=== PATIENT | female | born 1995 | race Caucasian/White ===

== ENCOUNTER 2019-11-08 04:14 | Inpatient (IN) | payer MEDICAID ==
[~2019-11-08] VITALS: Ht 175.3 cm; Wt 69.9 kg
[2019-11-08] MEDS ORDERED: HALOPERIDOL 5 MG TABLET PO PRN (06:45)
[2019-11-08 07:16] VITALS: BP 116/76
[2019-11-08 08:26] VITALS: BP 115/73
[2019-11-08] MEDS ORDERED: GuaiFENesin/D-METHORPHAN [SUGAR-FREE] 200-20MG/10 ML SYRUP UDCUP PO PRN (09:00)
[2019-11-08] MEDS ORDERED: ALBUTEROL SULFATE HFA 90 MCG/PUFF 8 GM INHALER IH PRN (09:00)
[2019-11-08] MEDS ORDERED: DOCUSATE SODIUM 100 MG CAPSULE PO PRN (09:00)
[2019-11-08] MEDS ORDERED: PETROLATUM,WHITE 28 GM JELLY TP PRN (09:00)
[2019-11-08] MEDS ORDERED: LOPERAMIDE HCL 2 MG CAPSULE PO PRN (09:00)
[2019-11-08] MEDS ORDERED: NICOTINE 14 MG/24 HOUR PATCH TD PRN (09:00)
[2019-11-08] MEDS ORDERED: CloNIDine HCL 0.1 MG TABLET PO PRN (09:00)
[2019-11-08] MEDS ORDERED: ONDANSETRON HCL 4 MG TABLET PO PRN (09:00)
[2019-11-08] MEDS ORDERED: MAG HYDROX/AL HYDROX/SIMETH ES 30 ML SUSPENSION UDCUP PO PRN (09:00)
[2019-11-08] MEDS ORDERED: ACETAMINOPHEN 325 MG TABLET PO PRN (09:00)
[2019-11-08] MEDS ORDERED: IBUPROFEN 400 MG TABLET PO PRN (09:00)
[2019-11-08] MEDS: SERTRALINE HCL 100 MG TABLET PO SCH (13:25)
[2019-11-08 16:40] VITALS: BP 127/76
[2019-11-08] MEDS: OLANZapine 10 MG TABLET PO SCH (17:04)
[2019-11-08] MEDS: TraMADol HCL 50 MG TABLET PO PRN (17:13)
[2019-11-09 00:03] VITALS: BP 120/74
[2019-11-09] MEDS: TraMADol HCL 50 MG TABLET PO PRN ×2 (00:07→13:02)
[2019-11-09 08:17] VITALS: BP 100/69
[2019-11-09] MEDS ORDERED: SERTRALINE HCL 100 MG TABLET PO SCH (09:00)
[2019-11-09] MEDS: OLANZapine 10 MG TABLET PO SCH ×2 (09:28→17:00)
[2019-11-09] MEDS: SERTRALINE HCL 100 MG TABLET PO SCH (09:28)
[2019-11-09 13:02] VITALS: BP 113/70
[2019-11-09 16:04] VITALS: BP 123/72
[2019-11-09] MEDS: LORazepam 2 MG TABLET PO PRN (20:49)
[2019-11-10 03:10] VITALS: BP 126/86
[2019-11-10 08:09] VITALS: BP 108/83
[2019-11-10 08:11] LABS: BASOPHILS % (AUTO) 0.8 % (0.0-2.0); HEMATOCRIT 38.4 % (36-46); HEMOGLOBIN 12.9 g/dL (12.0-16.0); LYMPHOCYTES # (AUTO) 1.9 K/uL (1.0-4.8); LYMPHOCYTES % (AUTO) 29.3 % (22.0-44.0); MEAN CORPUSCULAR HEMOGLOBIN 30.4 pg (26.0-34.0); MEAN CORPUSCULAR HGB CONC 33.5 G/dL (31.0-37.0); MEAN CORPUSCULAR VOLUME 91 fL (80-100); MONOCYTES # (AUTO) 0.4 K/uL (0.1-1.0); MONOCYTES % (AUTO) 6.1 % (2.0-9.0); NEUTROPHILS # (AUTO) 3.8 K/uL (1.8-7.7); NEUTROPHILS % (AUTO) 58.8 % (40.0-70.0); PLATELET COUNT (AUTO) 264 K/uL (150-450); RED BLOOD CELL COUNT(AUTO) 4.24 MIL/uL (4.00-5.20); RED CELL DISTRIBUTION WIDTH 13.7 % (11.5-14.5)
[2019-11-10] MEDS: SERTRALINE HCL 100 MG TABLET PO SCH (08:32)
[2019-11-10] MEDS: OLANZapine 10 MG TABLET PO SCH ×2 (08:32→16:25)
[2019-11-10 08:44] LABS: ALANINE AMINOTRANSFERASE 21 U/L (12-78); ALBUMIN 3.6 g/dL (3.4-5.0); ALKALINE PHOSPHATASE 53 U/L (46-116); ANION GAP 1 mmol/L (8-16); ASPARTATE AMINOTRANSFERASE 18 U/L (15-37); BILIRUBIN,TOTAL 0.3 mg/dL (0.1-1.0); CALCIUM, TOTAL 8.9 mg/dL (8.8-10.5); CARBON DIOXIDE 36 mmol/L (22-29); CHLORIDE 104 mmol/L (98-107); CHOLESTEROL 179 mg/dL (131-200); CREATININE 0.76 mg/dL (0.60-1.30); FREE T4 (FREE THYROXINE) 0.83 ng/dL (0.76-1.46); GLOMERULAR FILTR. RATE CALC > 60 mL/min (>60); GLUCOSE,RANDOM 74 mg/dL (70-110); HCG,QUANTITATIVE < 1 mIU/mL (0-6); HDL CHOLESTEROL 59 mg/dL (40-60); LDL CHOL (CALC.) 112 mg/dL (0-130); POTASSIUM 4.8 mmol/L (3.5-5.1); SODIUM SERUM 141 mmol/L (136-145); THYROID STIMULATING HORMONE 0.66 uIU/mL (0.36-3.74); TOTAL PROTEIN, SERUM 6.8 g/dL (6.4-8.2); TRIGLYCERIDES 38 mg/dL (15-150); UREA NITROGEN, BLOOD 13 mg/dL (7-18)
[2019-11-10 12:47] VITALS: BP 114/78
[2019-11-10] MEDS: TraMADol HCL 50 MG TABLET PO PRN (12:47)
[2019-11-10 16:05] VITALS: BP 107/66
[2019-11-10] MEDS: LORazepam 2 MG TABLET PO PRN (19:00)
[2019-11-11 06:44] VITALS: BP 115/80
[2019-11-11] MEDS: SERTRALINE HCL 100 MG TABLET PO SCH (08:39)
[2019-11-11] MEDS: OLANZapine 10 MG TABLET PO SCH (08:39)
[2019-11-11 08:46] VITALS: BP 115/78
[2019-11-11] MEDS: TraMADol HCL 50 MG TABLET PO PRN ×2 (08:50→16:59)
[2019-11-11] MEDS: LORazepam 2 MG TABLET PO PRN ×2 (13:19→23:15)
[2019-11-11] MEDS: OLANZapine 7.5 MG TABLET PO SCH (16:24)
[2019-11-11 16:36] VITALS: BP 119/77
[2019-11-11] MEDS: MAGNESIUM HYDROXIDE SUSPENSION 30 ML UDCUP PO PRN (23:09)
[2019-11-12 00:14] VITALS: BP 124/84
[2019-11-12] MEDS: ZOLPIDEM TARTRATE 10 MG TABLET PO PRN (00:21)
[2019-11-12] MEDS: OLANZapine 7.5 MG TABLET PO SCH ×2 (08:09→16:44)
[2019-11-12] MEDS: SERTRALINE HCL 100 MG TABLET PO SCH (08:09)
[2019-11-12 08:25] VITALS: BP 126/73
[2019-11-12 16:08] VITALS: BP 118/70
[2019-11-12] MEDS: TraMADol HCL 50 MG TABLET PO PRN (21:24)
[2019-11-13 02:06] VITALS: BP 123/85
[2019-11-13] MEDS: LORazepam 2 MG TABLET PO PRN (02:10)
[2019-11-13] MEDS: OLANZapine 7.5 MG TABLET PO SCH ×2 (08:51→16:53)
[2019-11-13] MEDS: SERTRALINE HCL 100 MG TABLET PO SCH (08:51)
[2019-11-13 08:58] VITALS: BP 98/59
[2019-11-13 13:40] VITALS: BP 112/68
[2019-11-13] MEDS: TraMADol HCL 50 MG TABLET PO PRN ×2 (13:40→20:15)
[2019-11-13 16:13] VITALS: BP 115/65
[2019-11-13] MEDS: ZOLPIDEM TARTRATE 10 MG TABLET PO PRN (22:05)
[2019-11-14 00:20] VITALS: BP 122/67
[2019-11-14 08:10] VITALS: BP 116/72
[2019-11-14] MEDS: SERTRALINE HCL 100 MG TABLET PO SCH (08:12)
[2019-11-14] MEDS: OLANZapine 7.5 MG TABLET PO SCH ×2 (08:13→16:45)
[2019-11-14 16:07] VITALS: BP 112/85
[2019-11-14] MEDS: LORazepam 2 MG TABLET PO PRN (16:50)
[2019-11-15 01:07] VITALS: BP 136/82
[2019-11-15] MEDS: ZOLPIDEM TARTRATE 10 MG TABLET PO PRN ×2 (02:06→21:48)
[2019-11-15] MEDS: SERTRALINE HCL 100 MG TABLET PO SCH (08:52)
[2019-11-15] MEDS: OLANZapine 7.5 MG TABLET PO SCH ×2 (08:52→17:04)
[2019-11-15 16:13] VITALS: BP 121/79
[2019-11-16 01:00] VITALS: BP 120/84
[2019-11-16] MEDS: TraMADol HCL 50 MG TABLET PO PRN ×2 (03:06→18:09)
[2019-11-16 08:38] VITALS: BP 112/69
[2019-11-16] MEDS: SERTRALINE HCL 100 MG TABLET PO SCH (10:02)
[2019-11-16] MEDS: OLANZapine 7.5 MG TABLET PO SCH ×2 (10:02→17:29)
[2019-11-16] MEDS: LORazepam 2 MG TABLET PO PRN ×2 (10:02→17:29)
[2019-11-16 16:19] VITALS: BP 118/74
[2019-11-16] MEDS: ZOLPIDEM TARTRATE 10 MG TABLET PO PRN (22:10)
[2019-11-17 00:19] VITALS: BP 111/79
[2019-11-17 08:18] VITALS: BP 118/72
[2019-11-17] MEDS: SERTRALINE HCL 100 MG TABLET PO SCH (09:09)
[2019-11-17] MEDS: OLANZapine 7.5 MG TABLET PO SCH ×2 (09:09→16:40)
[2019-11-17 16:21] VITALS: BP 120/64
[2019-11-17] MEDS: MAGNESIUM HYDROXIDE SUSPENSION 30 ML UDCUP PO PRN (21:55)
[2019-11-18 00:56] VITALS: BP 114/74
[2019-11-18 08:18] VITALS: BP 119/74
[2019-11-18] MEDS: OLANZapine 7.5 MG TABLET PO SCH (08:49)
[2019-11-18] MEDS: SERTRALINE HCL 100 MG TABLET PO SCH (08:49)
[2019-11-18] MEDS ORDERED: SERT100T12 PO (21:03)
[2019-11-18] MEDS ORDERED: OLAN7.5T2 PO (21:04)
[2019-11-19] MEDS ORDERED: TRAM50TA4 PO (11:32)
[2019-11-19] MEDS ORDERED: ZOLP10TA8 PO (11:32)
[2019-11-19] MEDS ORDERED: IBUP-1506 PO (11:32)
[2019-11-19] MEDS ORDERED: MOM30 PO (11:32)
[2019-11-19] MEDS ORDERED: HALO5TAB23 PO (11:32)
[2019-11-19] MEDS ORDERED: LORA-1001 PO (11:32)
== END 2019-11-18 16:30 | disposition short-term general hospital (02) | DRG 885 ==
LOC: B2S 05:45 → B3A 11-14 14:00
PROVIDERS: ADMIT Psychiatry & Neurology Psychiatry; ATTEND Psychiatry & Neurology Psychiatry
DX: F20.0 Paranoid schizophrenia (principal); F10.10 Alcohol abuse, uncomplicated; E05.00 Thyrotoxicosis with diffuse goiter without thyrotoxic crisis or storm; F32.9 Major depressive disorder, single episode, unspecified; F19.10 Other psychoactive substance abuse, uncomplicated; F41.9 Anxiety disorder, unspecified; G44.209 Tension-type headache, unspecified, not intractable; Z20.828 Contact with and (suspected) exposure to other viral communicable diseases; Z59.0 Homelessness; Z79.899 Other long term (current) drug therapy
CPT/HCPCS: 84436; 84439; 84443

== ENCOUNTER 2019-11-21 17:33 | Inpatient (IN) | payer MEDICAID ==
[~2019-11-21] VITALS: Ht 175.3 cm; Wt 63.5 kg
[~2019-11-21 17:33] MED LIST: AMOX1TAB16 PO; FLUC100T PO; HALO5TAB23 PO; IBUP-1506 PO; LORA-1001 PO; MOM30 PO; OLAN7.5T2 PO; SERT100T12 PO; TRAM50TA4 PO; ZOLP10TA8 PO
[2019-11-22] MEDS ORDERED: ZOLPIDEM TARTRATE 10 MG TABLET PO PRN (01:45)
[2019-11-22] MEDS ORDERED: LORazepam 2 MG TABLET PO PRN (01:45)
[2019-11-22 03:38] VITALS: BP 131/91
[2019-11-22] MEDS ORDERED: PETROLATUM,WHITE 28 GM JELLY TP PRN (08:15)
[2019-11-22] MEDS ORDERED: IBUPROFEN 400 MG TABLET PO PRN (08:15)
[2019-11-22] MEDS ORDERED: ONDANSETRON HCL 4 MG TABLET PO PRN (08:15)
[2019-11-22] MEDS ORDERED: CloNIDine HCL 0.1 MG TABLET PO PRN (08:15)
[2019-11-22] MEDS ORDERED: NICOTINE 14 MG/24 HOUR PATCH TD PRN (08:15)
[2019-11-22] MEDS ORDERED: LOPERAMIDE HCL 2 MG CAPSULE PO PRN (08:15)
[2019-11-22] MEDS ORDERED: ALBUTEROL SULFATE HFA 90 MCG/PUFF 8 GM INHALER IH PRN (08:15)
[2019-11-22] MEDS ORDERED: MAGNESIUM HYDROXIDE SUSPENSION 30 ML UDCUP PO PRN (08:15)
[2019-11-22] MEDS ORDERED: DOCUSATE SODIUM 100 MG CAPSULE PO PRN (08:15)
[2019-11-22] MEDS ORDERED: ACETAMINOPHEN 325 MG TABLET PO PRN (08:15)
[2019-11-22] MEDS ORDERED: MAG HYDROX/AL HYDROX/SIMETH ES 30 ML SUSPENSION UDCUP PO PRN (08:15)
[2019-11-22] MEDS ORDERED: GuaiFENesin/D-METHORPHAN [SUGAR-FREE] 200-20MG/10 ML SYRUP UDCUP PO PRN (08:15)
[2019-11-22] MEDS ORDERED: SERTRALINE HCL 100 MG TABLET PO SCH (09:00)
[2019-11-22] MEDS ORDERED: OLANZapine 7.5 MG TABLET PO ONE (09:00)
[2019-11-22 10:26] VITALS: BP 109/77
[2019-11-22] MEDS ORDERED: FLUC100T PO (15:59)
[2019-11-22] MEDS ORDERED: AMOX1TAB16 PO (15:59)
[2019-11-22] MEDS ORDERED: FLUCONAZOLE 200 MG TABLET PO SCH (16:00)
[2019-11-22 16:49] VITALS: BP 138/81
[2019-11-22] MEDS ORDERED: AMOX TR/POT CLAV 875 MG/125 MG TABLET PO SCH (17:00)
== END 2019-11-22 18:30 | disposition home or self-care (01) | DRG 885 ==
LOC: 3EC 23:45
PROVIDERS: ADMIT Psychiatry & Neurology Psychiatry; ATTEND Psychiatry & Neurology Psychiatry
DX: F20.9 Schizophrenia, unspecified (principal); G44.209 Tension-type headache, unspecified, not intractable; K59.00 Constipation, unspecified; F10.10 Alcohol abuse, uncomplicated; J03.90 Acute tonsillitis, unspecified; F41.9 Anxiety disorder, unspecified; F32.9 Major depressive disorder, single episode, unspecified; Z79.899 Other long term (current) drug therapy
CPT/HCPCS: Z7610